=== PATIENT | female | born 1990 | race Caucasian/White ===

== ENCOUNTER 2017-07-17 20:16 | Inpatient (IN) | payer OTHER ==
[2017-07-17] MEDS: LACTATED RINGER'S 1,000 ML IV (21:18)
[2017-07-17] MEDS ORDERED: LACTATED RINGER'S 1,000 ML IV (21:18)
[2017-07-17] MEDS ORDERED: MISOPROSTOL 200 MCG TAB PR (21:30)
[2017-07-17] MEDS ORDERED: LIDOCAINE 1% (MPF) 30 ML INJ INJ (21:30)
[2017-07-17] MEDS ORDERED: OXYTOCIN 30 UNITS/LR 500 ML IV (21:30)
[2017-07-17] MEDS ORDERED: CARBOPROST 250 MCG INJ IM (21:30)
[2017-07-17] MEDS ORDERED: IBUPROFEN 600 MG TAB PO (21:30)
[2017-07-17 21:53] LABS: ADD MAN DIFF? NO
[2017-07-17 21:55] LABS: WHITE BLOOD COUNT 12.9 10^3/ul (4.8-10.8)
[2017-07-17 21:55] LABS: BASOPHIL # 0.1 10^3/ul (0.0-0.1); BASOPHILS % 0.4 % (0.0-2.0); EOSINOPHILS # 0.6 10^3/ul (0.0-0.5); EOSINOPHILS % 4.9 % (0.0-7.0); HEMATOCRIT 32.7 % (37.0-47.0); HEMOGLOBIN 10.8 g/dl (12.0-16.0); LYMPHOCYTES % 15.6 % (15.0-51.0); MEAN CORPUSCULAR HEMOGLOBIN 27.4 pg (29.0-33.0); MEAN PLATELET VOLUME 10.1 fl (7.4-10.4); NEUTROPHIL # 9.1 10^3/ul (1.6-7.5); NEUTROPHILS % 70.4 % (39.0-77.0); PLATELET COUNT 359 10^3/UL (140-415); RED BLOOD COUNT 3.94 10^6/ul (4.20-5.40); RED CELL DISTRIBUTION WIDTH 16.8 % (11.5-14.5)
[2017-07-17 22:14] LABS: GLUCOSE 131 mg/dl (70-220)
[2017-07-17 22:28] LABS: INR 0.93; PROTIME 12.6 Sec (11.9-14.9)
[2017-07-17 22:29] LABS: PARTIAL THROMBOPLASTIN TIME 32.5 Sec (25.0-35.0)
[2017-07-17 22:46] LABS: HEPATITIS B SURFACE ANTIGEN NEGATIVE (NEGATIVE)
[2017-07-18 00:01] LABS: ADD UMIC NO; UR ASCORBIC ACID NEGATIVE (NEGATIVE); UR BILIRUBIN (Dip) NEGATIVE (NEGATIVE); UR BLOOD (Dip) NEGATIVE (NEGATIVE); UR CLARITY CLEAR (CLEAR); UR COLOR YELLOW (YELLOW); UR GLUCOSE (Dip) NEGATIVE (NEGATIVE); UR KETONES (Dip) NEGATIVE (NEGATIVE); UR LEUKOCYTE ESTERASE (Dip) NEGATIVE Leu/ul (NEGATIVE); UR NITRITE (Dip) NEGATIVE (NEGATIVE); UR SPECIFIC GRAVITY (Dip) 1.012 (1.003-1.030); UR TOTAL PROTEIN (Dip) NEGATIVE (NEGATIVE); UR UROBILINOGEN (Dip) NEGATIVE (NEGATIVE)
[2017-07-18] MEDS: DEXTROSE 5%-LR 1,000 ML IV ×3 (01:00→17:00)
[2017-07-18] MEDS: SALINE 0.65% 45 ML NAS SPRAY NASAL (01:21)
[2017-07-18] MEDS: DINOPROSTONE 10 MG VAG SUPP VAG (01:24)
[2017-07-18] MEDS: LACTATED RINGER'S 1,000 ML IV ×3 (05:03→21:04)
[2017-07-18 22:22] LABS: RAPID PLASMA REAGIN NONREACTIVE (NR)
[2017-07-19] MEDS: DEXTROSE 5%-LR 1,000 ML IV ×2 (00:20→09:00)
[2017-07-19] MEDS: DINOPROSTONE 10 MG VAG SUPP VAG ×2 (02:55→03:05)
[2017-07-19] MEDS: MISOPROSTOL 25 MCG CAPSULE PO ×6 (03:36→23:36)
[2017-07-19] MEDS: LACTATED RINGER'S 1,000 ML IV ×3 (05:18→20:58)
[2017-07-19] MEDS: BUTORPHANOL 2 MG INJ IV ×2 (07:43→20:56)
[2017-07-19] MEDS: AZITHROMYCIN 500MG/NS (PMX) 250 ML IV (12:07)
[2017-07-19] MEDS: GUAIFENESIN LA 600 MG TABSR PO ×2 (12:58→20:55)
[2017-07-20] MEDS ORDERED: DIPHENHYDRAMINE 50 MG INJ IV ×2 (01:00→09:30)
[2017-07-20] MEDS ORDERED: NALOXONE (0.4 MG/ML) INJ IV (01:00)
[2017-07-20] MEDS ORDERED: EPHEDrine SULFATE 50 MG/5 ML SYG IV (01:00)
[2017-07-20] MEDS ORDERED: FENTAnyl 2MCG/ML-ROPIV 0.2% 100 ML BAG EPI (01:00)
[2017-07-20] MEDS ORDERED: ONDANSETRON 4 MG INJ IV ×2 (01:00→09:30)
[2017-07-20] MEDS: LACTATED RINGER'S 1,000 ML IV ×2 (01:55→08:00)
[2017-07-20] MEDS: DEXTROSE 5%-LR 1,000 ML IV ×4 (01:55→18:02)
[2017-07-20] MEDS: METHYLERGONOVINE 0.2 MG INJ IM (09:07)
[2017-07-20] MEDS: OXYTOCIN 30 UNITS/LR 500 ML IV ×2 (09:10→10:17)
[2017-07-20] MEDS: ACETAMINOPHEN 325 MG TAB PO (09:20)
[2017-07-20] MEDS: LACTATED RINGER'S 1,000 ML IV* ×3 (09:29→19:03)
[2017-07-20] MEDS ORDERED: METHYLERGONOVINE 0.2 MG INJ IM (09:30)
[2017-07-20] MEDS ORDERED: ONDANSETRON 4 MG TAB PO (09:30)
[2017-07-20] MEDS ORDERED: MISOPROSTOL 200 MCG TAB PR (09:30)
[2017-07-20] MEDS ORDERED: CARBOPROST 250 MCG INJ IM (09:30)
[2017-07-20] MEDS ORDERED: ACETAMINOPHEN 325 MG TAB PO ×2 (09:30)
[2017-07-20] MEDS ORDERED: HYDROCODONE/APAP (5/325) TAB PO ×2 (09:30)
[2017-07-20] MEDS ORDERED: MAGNESIUM HYDROXIDE 30ML CUP PO (09:30)
[2017-07-20] MEDS ORDERED: OXYTOCIN 30 UNITS/LR 500 ML IV (09:30)
[2017-07-20] MEDS ORDERED: DIPHENHYDRAMINE 25 MG CAP PO (09:30)
[2017-07-20] MEDS: ACCU-CHEK XX ×3 (09:35→22:00)
[2017-07-20] MEDS: GUAIFENESIN LA 600 MG TABSR PO ×2 (09:40→23:51)
[2017-07-20] MEDS: IBUPROFEN 800 MG TAB PO ×3 (11:10→23:51)
[2017-07-20] MEDS: PRENATAL VITAMIN PO (11:10)
[2017-07-20] MEDS ORDERED: METHYLERGONOVINE 0.2 MG INJ (12:17)
[2017-07-20] MEDS: BENZOCAINE 20% 56 ML SPRAY TOP (12:33)
[2017-07-20] MEDS: OXYCODONE/ACETAMINOPHEN (5/325) TAB PO (12:33)
[2017-07-20] MEDS: DIBUCAINE 1% 30 GM OINT PR (12:33)
[2017-07-20] MEDS: LANOLIN 7 GM TUBE TOP (12:33)
[2017-07-20] MEDS: AZITHROMYCIN 500MG/NS (PMX) 250 ML IVPB (13:45)
[2017-07-21] MEDS: DEXTROSE 5%-LR 1,000 ML IV ×3 (02:17→17:00)
[2017-07-21] MEDS: IBUPROFEN 800 MG TAB PO ×3 (06:10→17:50)
[2017-07-21 07:27] LABS: ADD MAN DIFF? NO
[2017-07-21 07:34] LABS: BASOPHIL # 0.1 10^3/ul (0.0-0.1); BASOPHILS % 0.5 % (0.0-2.0); EOSINOPHILS # 0.5 10^3/ul (0.0-0.5); EOSINOPHILS % 3.5 % (0.0-7.0); HEMATOCRIT 29.1 % (37.0-47.0); HEMOGLOBIN 9.4 g/dl (12.0-16.0); LYMPHOCYTES # 3.1 10^3/ul (0.8-2.9); LYMPHOCYTES % 20.4 % (15.0-51.0); MEAN CORPUSCULAR HEMOGLOBIN 26.7 pg (29.0-33.0); MEAN CORPUSCULAR HGB CONC 32.3 g/dl (32.0-37.0); MEAN CORPUSCULAR VOLUME 82.7 fl (82.0-101.0); MEAN PLATELET VOLUME 10.6 fl (7.4-10.4); MONOCYTE # 1.2 10^3/ul (0.3-0.9); MONOCYTES % 8.2 % (0.0-11.0); NEUTROPHILS % 66.7 % (39.0-77.0); PLATELET COUNT 319 10^3/UL (140-415); RED BLOOD COUNT 3.52 10^6/ul (4.20-5.40); RED CELL DISTRIBUTION WIDTH 17.1 % (11.5-14.5)
[2017-07-21] MEDS: INFLUENZA VIRUS VACCINE 0.5 ML (DISPENSING) IM* (09:00)
[2017-07-21] MEDS: LACTATED RINGER'S 1,000 ML IV* ×2 (09:29→17:29)
[2017-07-21] MEDS: SENNA/DOCUSATE NA (8.6MG/50MG) TAB PO (09:31)
[2017-07-21] MEDS: GUAIFENESIN LA 600 MG TABSR PO ×2 (09:31→21:37)
[2017-07-21] MEDS: PRENATAL VITAMIN PO (09:31)
[2017-07-21] MEDS: ACCU-CHEK XX ×4 (10:05→20:10)
[2017-07-21] MEDS: AZITHROMYCIN 500MG/NS (PMX) 250 ML IVPB (12:38)
[2017-07-22] MEDS: IBUPROFEN 800 MG TAB PO ×3 (05:42→12:01)
[2017-07-22] MEDS: GUAIFENESIN LA 600 MG TABSR PO (08:38)
[2017-07-22] MEDS: PRENATAL VITAMIN PO (08:39)
[2017-07-22] MEDS: MEASLES,MUMPS,RUBELLA VACCINE INJ SC* (09:00)
[2017-07-22] MEDS: VARICELLA VACCINE LIVE/PF 1,350 UNIT/0.5 ML ML SC* (09:00)
[2017-07-22] MEDS ORDERED: FENTAnyl 50 MCG/ML VIAL IV ×3 (09:30)
[2017-07-22] MEDS ORDERED: hydrALAzine 20 MG INJ IV (09:30)
[2017-07-22] MEDS ORDERED: MEPERIDINE 25 MG INJ IV (09:30)
[2017-07-22] MEDS ORDERED: LABETALOL HCL 20MG INJ IV (09:30)
[2017-07-22] MEDS ORDERED: DIPHENHYDRAMINE 50 MG INJ IV (09:30)
[2017-07-22] MEDS ORDERED: MIDAZOLAM 1 MG/ML 2 ML INJ IV (09:30)
[2017-07-22] MEDS ORDERED: EPHEDrine SULFATE 50 MG/5 ML SYG IV (09:30)
[2017-07-22] MEDS ORDERED: METOCLOPRAMIDE 10 MG INJ IV (09:30)
[2017-07-22] MEDS ORDERED: OXYCODONE/ACETAMINOPHEN (5/325) TAB PO ×2 (09:30)
[2017-07-22] MEDS ORDERED: HYDROmorphONE (0.2 MG/ML) 10ML SYG IV ×3 (09:30)
[2017-07-22] MEDS ORDERED: ONDANSETRON 4 MG INJ IV (09:30)
[2017-07-22] MEDS: DIPHTH/TET/ACEL PERTUSS (ADULT) 0.5 ML VIAL IM* (12:31)
== END 2017-07-22 15:11 | disposition home or self-care (01) | DRG 775 ==
LOC: L-D 20:16 → PP1 07-20 11:23
PROVIDERS: Obstetrics & Gynecology
PROC: 10E0XZZ Delivery of Products of Conception, External Approach (ICD-10-PCS; principal; 2017-07-20)
PROC: 0HQ9XZZ Repair Perineum Skin, External Approach (ICD-10-PCS; 2017-07-20)
PROC: 3E0P7VZ Introduction of Hormone into Female Reproductive, Via Natural or Artificial Opening (ICD-10-PCS; 2017-07-20)
PROC: 3E0234Z Introduction of Serum, Toxoid and Vaccine into Muscle, Percutaneous Approach (ICD-10-PCS; 2017-07-22)
DX: O24.429 Gestational diabetes mellitus in childbirth, unspecified control (principal); E16.2 Hypoglycemia, unspecified; O70.0 First degree perineal laceration during delivery; Z3A.39 39 weeks gestation of pregnancy; Z37.0 Single live birth; Z23 Encounter for immunization
CPT/HCPCS: 76815; 76818; 81003; 82947; 82962; 85025; 85610; 85730; 86592; 86850; 86900; 86901; 87340; 90715; 99464